=== PATIENT | male | born 2000 | race Caucasian/White ===

== ENCOUNTER 2020-04-19 20:19 | Emergency (ER) | payer MEDICAID ==
[~2020-04-19] VITALS: Ht 172.7 cm; Wt 75.5 kg
[2020-04-19 20:29] VITALS: Ht 172.7 cm; Wt 75.5 kg
[2020-04-19 22:15] VITALS: BP 132/92
== END 2020-04-19 22:15 | disposition home or self-care (01) ==
LOC: ED 20:19
DX: M54.12 Radiculopathy, cervical region (principal); M25.512 Pain in left shoulder
CPT/HCPCS: Q0092